=== PATIENT | female | born 1980 | race Caucasian/White ===

== ENCOUNTER → 2024-07-20 15:25 | Outpatient (REF) | payer BC, SELFPAY | LOC: HWWDC 15:25 | PROVIDERS: ATTENDING PHYSICIAN Family Medicine Geriatric Medicine | DX: Z12.31 Encounter for screening mammogram for malignant neoplasm of breast (principal) | CPT/HCPCS: 77063; 77067 ==

== ENCOUNTER → 2024-08-12 11:41 | Outpatient (REF) | payer BC, SELFPAY | LOC: HWRAD 11:41 | PROVIDERS: ATTENDING PHYSICIAN Student in an Organized Health Care Education/Training Program; FAMILY PHYSICIAN Family Medicine Geriatric Medicine | DX: R05.3 Chronic cough (principal); J84.9 Interstitial pulmonary disease, unspecified; M34.9 Systemic sclerosis, unspecified; K21.9 Gastro-esophageal reflux disease without esophagitis | CPT/HCPCS: 71250 ==